=== PATIENT | female | born 1975 ===

== ENCOUNTER 2017-09-18 00:30 | Observation (INO) | payer MEDICAID, OTHER ==
[2017-09-18 00:31] VITALS: BMI 24.2
--- NOTE | 2017-09-18 00:42 | ED PDOC ---
Arrival/HPI - General Time Seen by Provider: 09/18/17 00:30 Historian: Patient, Family, EMS - History of Present Illness Narrative History of Present Illness (Text): 09/18/17 00:40 Rosette Linder is a 42 year old female, whose past medical history includes seizure disorder and hypertension, who presents to the emergency department brought in by EMS accompanied by relative status post 2 witnessed seizure episodes prior to arrival. EMS note patient was post-ictal en route, but patient is now alert and oriented x3. Patient states she is compliant with her seizure medication and notes her last seizure was approximately 1.5 years ago. Patient notes she has not been feeling well for the past few days. Patient denies any fevers, chills, chest pain, shortness of breath, abdominal pain, nausea, vomiting, urinary symptoms, headache, or any other complaint. Symptom Onset: Gradual Symptom Course: Unchanged Activities at Onset: Light Context: Home Past Medical History - Provider Review Nursing Documentation Reviewed: Yes Family/Social History - Physician Review Nursing Documentation Reviewed: Yes Family/Social History: Unknown Family HX Allergies/Home Meds Allergies/Adverse Reactions: Allergies No Known Allergies Allergy (Verified 09/18/17 00:31) Home Medications: Home Meds Medication Instructions Recorded Confirmed Unobtainable 09/18/17 09/18/17 Review of Systems - Physician Review All systems were reviewed & negative as marked: Yes - Review of Systems Constitutional: Other (+generalized malaise). absent: Fevers Eyes: Normal ENT: Normal Respiratory: Normal. absent: SOB, Cough Cardiovascular: Normal. absent: Chest Pain Gastrointestinal: Normal. absent: Abdominal Pain, Diarrhea, Nausea, Vomiting Genitourinary Female: Normal. absent: Dysuria, Frequency, Hematuria, Urine Output Changes Musculoskeletal: Normal. absent: Back Pain, Neck Pain Skin: Normal. absent: Rash Neurological: Seizure. absent: Headache, Dizziness Endocrine: Normal Hemo/Lymphatic: Normal Psychiatric: Normal Physical Exam Vital Signs Reviewed: Yes Vital Signs Temp Pulse Resp BP Pulse Ox 09/18/17 03:45 80 20 134/90 99 09/18/17 02:40 84 21 138/95 H 99 09/18/17 00:55 98.6 F 100 H 26 H 146/84 95 Temperature: Afebrile Blood Pressure: Normal Pulse: Regular Respiratory Rate: Normal Appearance: Positive for: Well-Appearing, Non-Toxic, Comfortable Pain Distress: None Mental Status: Positive for: Alert and Oriented X 3 - Systems Exam Head: Present: Atraumatic, Normocephalic Pupils: Present: PERRL Extroacular Muscles: Present: EOMI Conjunctiva: Present: Normal Ears: Present: Normal, NORMAL TM, Normal Canal Mouth: Present: Moist Mucous Membranes Pharnyx: Present: Normal. No: ERYTHEMA, EXUDATE, TONSILS ENLARGED, Peritonsilar Swelling, Uvular Deviation, Muffled/Hoarse Voice, Soft Palate/ Uvular Edema Nose (External): Present: Atraumatic Nose (Internal): Present: Normal Inspection Neck: Present: Normal Range of Motion. No: Meningeal Signs, MIDLINE TENDERNESS , Paraspinal Tenderness Respiratory/Chest: Present: Clear to Auscultation, Good Air Exchange. No: Respiratory Distress, Accessory Muscle Use Cardiovascular: Present: Regular Rate and Rhythm, Normal S1, S2. No: Murmurs Abdomen: No: Tenderness, Distention, Peritoneal Signs Back: Present: Normal Inspection Upper Extremity: Present: Normal Inspection. No: Cyanosis, Edema Lower Extremity: Present: Normal Inspection. No: Edema Neurological: Present: GCS=15, CN II-XII Intact, Speech Normal, Motor Func Grossly Intact, Normal Sensory Function, Normal Cerebellar Funct Skin: Present: Warm, Dry, Normal Color. 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 Differential Diagnosis included but are not limited to: Plan: -- CT Head w/o contrast -- EKG -- CXR -- Labs, cardiac enzymes -- Reassess and disposition Progress Notes: 09/18/17 00:55 Reviewed EKG, sinus tachycardia at 103 bpm. Incomplete RBBB. Non-specific ST/T wave changes. 09/18/17 02:26 Reviewed radiology, CXR shows no acute processes. CT Head: Limitations: Overlying bowel gas. Liver: Suboptimally visualized. Lobulated contour. Fatty infiltration. 3.3 x 3.0 x 3.9 cm hypo-to isoechoic mass. Additional masses not demonstrated likely due to suboptimal visualization. No intrahepatic ductal dilation. Gallbladder: No gallstones. No wall thickening. No pericholecystic fluid. No sonographic Maharaj's sign. Common bile duct: No dilatation. No stones. Pancreas: Obscured by overlying bowel gas. Kidneys: Normal echogenicity. No hydronephrosis. Spleen: No splenomegaly. Aorta: Not visualized. Inferior vena cava: Not visualized. Free fluid: No significant free fluid. Other findings: TIPS. IMPRESSION: 1. Liver mass, indeterminate but present on previous CT examination. Clinical correlation is needed. 2. Cirrhosis. 3. Incidental/non-acute findings are described above. 09/18/17 02:36 Case discussed with medical health researcher director of occupational health and Dr. Palma, who are aware and agree with plan. Pt will go to Telemetry observation for seizures under the hospitalist service. - Lab Interpretations Lab Results: 09/18/17 01:10 09/18/17 01:37 Lab Results 09/18/17 01:37: Sodium 142, Potassium 3.8, Chloride 106, Carbon Dioxide 25, Anion Gap 14, BUN 14, Creatinine 0.8, Est GFR ( Amer) > 60, Est GFR (Non- Af Amer) > 60, Random Glucose 107, Calcium 8.6, Total Bilirubin < 0.1 L, AST 25 , ALT 30, Alkaline Phosphatase 106, Lactate Dehydrogenase 491, Total Creatine Kinase 126, Troponin I 0.04, Total Protein 7.1, Albumin 3.9, Globulin 3.3, Albumin/Globulin Ratio 1.2 09/18/17 01:10: WBC 5.6, RBC 4.03, Hgb 11.3 L, Hct 33.3 L, MCV 82.6, MCH 28.0, MCHC 33.9, RDW 13.3, Plt Count 172, MPV 12.5 H 09/18/17 01:10: PT 11.8, INR 1.03, APTT 27.3 I have reviewed the lab results: Yes - RAD Interpretation Radiology Orders: 09/18/17 00:43 CHEST PORTABLE [RAD] Stat 09/18/17 00:44 HEAD W/O CONTRAST [CT] Stat Tanning Solution Maker: ED Physician, Radiologist - EKG Interpretation Interpreted by ED Physician: Yes Type: 12 lead EKG - Medication Orders Current Medication Orders: Hydrochlorothiazide (Hydrodiuril) 25 mg PO DAILY TONY Lamotrigine (Lamictal) 250 mg PO DAILY TONY PRN Reason: Protocol Lamotrigine (Lamictal) 100 mg PO HS TONY PRN Reason: Protocol Lorazepam (Ativan) 2 mg IVP Q6H PRN; Protocol PRN Reason: Seizure activity Losartan Potassium (Cozaar) 100 mg PO DAILY TONY Ondansetron HCl (Zofran Inj) 4 mg IVP Q4H PRN PRN Reason: Nausea/Vomiting Pantoprazole Sodium (Protonix Ec Tab) 40 mg PO 0600 TONY Discontinued Medications Ondansetron HCl (Zofran Inj) 4 mg IVP ONCE ONE Stop: 09/18/17 02:31 Last Admin: 09/18/17 02:49 Dose: 4 mg IVP Administration Document 09/18/17 02:49 HILLARY (Rec: 09/18/17 02:50 HILLARY [id number]) Charges for Administration # of IVP Administrations 1 - Scribe Statement The provider has reviewed the documentation as recorded by the Jonnyibkodi Trinidad Provider Scribe Attestation: All medical record entries made by the Scribe were at my direction and personally dictated by me. I have reviewed the chart and agree that the record accurately reflects my personal performance of the history, physical exam, medical decision making, and the department course for this patient. I have also personally directed, reviewed, and agree with the discharge instructions and disposition. Disposition/Present on Arrival - Present on Arrival Any Indicators Present on Arrival: No History of DVT/PE: No History of Uncontrolled Diabetes: No Urinary Catheter: No History of Decub. Ulcer: No History Surgical Site Infection Following: None - Disposition Have Diagnosis and Disposition been Completed?: Yes Diagnosis: Recurrent seizures Disposition: HOSPITALIZED Disposition Time: 02:41 Patient Problems: Current Active Problems Problem Status Onset Recurrent seizures Acute Condition: STABLE
[2017-09-18 01:30] LABS: INR 1.03 (0.93-1.08); PARTIAL THROMBOPLASTIN TIME 27.3 Seconds (25.1-36.5); PROTHROMBIN TIME 11.8 SECONDS (9.4-12.5)
[2017-09-18 01:38] LABS: HEMOGLOBIN 11.3 g/dL (12.0-16.0); MEAN CELL VOLUME 82.6 fl (80.0-105.0); MEAN CORPUSCULAR HGB CONC 33.9 g/dl (31.0-37.0); MEAN PLATELET VOLUME 12.5 fl (7.0-11.0); RBC 4.03 10^6/uL (3.5-6.1); RED CELL DISTRIBUTION WIDTH 13.3 % (11.5-14.5); WHITE BLOOD COUNT 5.6 10^3/ul (4.5-11.0)
[2017-09-18 02:20] LABS: ALB/GLOB RATIO 1.2 (1.1-1.8); ALBUMIN 3.9 g/dL (3.0-4.8); ALT/SGPT 30 U/L (7-56); AST/SGOT 25 U/L (14-36); BLOOD UREA NITROGEN 14 mg/dL (7-21); CALCIUM 8.6 mg/dL (8.4-10.5); GFR AFRICAN-AMERICAN > 60; GFR NON-AFRICAN AMERICAN > 60
--- NOTE | 2017-09-18 02:22 | CT ---
EXAM: CT Head Without Intravenous Contrast CLINICAL HISTORY: 42 years old, female; Signs and symptoms; Dizziness; Additional info: Seizures TECHNIQUE: Axial computed tomography images of the head/brain without intravenous contrast. All CT scans at this facility use one or more dose reduction techniques, viz.: automated exposure control; ma/kV adjustment per patient size (including targeted exams where dose is matched to indication; i.e. head); or iterative reconstruction technique. Coronal and sagittal reformatted images were created and reviewed. COMPARISON: No relevant prior studies available. FINDINGS: Brain: Minimal atrophy. No intracranial hemorrhage. No mass. No definite edema. Ventricles: No hydrocephalus. Bones/joints: No acute fracture. Soft tissues: Unremarkable. Sinuses: No acute sinusitis. Mastoid air cells: No mastoid effusion. Orbits: Unremarkable as visualized. IMPRESSION: 1. No definite acute intracranial abnormality. 2. Incidental/non-acute findings are described above.
[2017-09-18 02:31] LABS: TROPONIN I 0.04 ng/mL
--- NOTE | 2017-09-18 05:47 | CP.PCM.HP ---
<Chacorta Gunter - Last Filed: 09/18/17 06:01> History of Present Illness - History of Present Illness History of Present Illness: Mrs. Linder is a 42 year old female with a past medical history significant for seizure disorder, SLE, and HTN who presents after she had a witnessed seizure earlier today. Patient was accompanied by her sister who witnessed these seizures. She reports that the patient woke up from her sleep and her entire body began to convulse for approximately one minute. She then stopped completely for one minute and then her entire body began to convulse again for one minute before she stopped convulsing. She then called 911 and patient was brought to the ER. The patient reports that she does not remember this and awoke in the ambulance as her first recollection. She does note that she was dizzy and confused afterwards for several hours. She reports that she takes her seizure medications as prescribed and follows up with Dr. Montgomery, Neurology, on a regular basis. Her last reported seizure was 10 months ago on the same dose of this medication. Of note, patient reports that she had UTI symptoms in April, was prescribed an antibiotic and never got this or followed up on it. She also noted a clear malodorous vaginal discharge for the past three days. She denies any fevers, chills, headache, changes in her vision, sore throat, chest pain, SOB, cough, wheezing, abdominal pain, N/V/D/C, changes in urine output, skin lesions, or any numbness/tingling/weakness of any extremity. PMH: As stated above PSH: Denies Family History: Denies any history of seizures or neurological conditions Social History: Denies any tobacco, alcohol or illicit drug use; Live in [place] Allergies: NKDA Home Medications: As per MAR Present on Admission - Present on Admission Any Indicators Present on Admission: No Review of Systems - Review of Systems Review of Systems: As stated in HPI, otherwise negative Past Patient History - Infectious Disease Hx of Infectious Diseases: None - Past Social History Smoking Status: Never Smoked - CARDIAC Hx Hypertension: Yes - PULMONARY Hx Respiratory Disorders: No - NEUROLOGICAL Hx Dizziness: Yes Hx Transient Ischemic Attacks (TIA): Yes - HEENT Hx HEENT Problems: No - RENAL Hx Chronic Kidney Disease: No - ENDOCRINE/METABOLIC Hx Systemic Lupus Erythematosus: Yes - HEMATOLOGICAL/ONCOLOGICAL Hx Blood Disorders: No - INTEGUMENTARY Hx Dermatological Problems: Yes (Malar Rash due to Lupus) - MUSCULOSKELETAL/RHEUMATOLOGICAL Hx Falls: Yes - GASTROINTESTINAL Hx Gastrointestinal Disorders: Yes (Hemmorhoids) - GENITOURINARY/GYNECOLOGICAL Hx Genitourinary Disorders: No - PSYCHIATRIC Hx Anxiety: Yes Hx Panic Symptoms: Yes Hx Substance Use: No - SURGICAL HISTORY Hx Surgeries: Yes () Meds Allergies/Adverse Reactions: Allergies Allergy/AdvReac Type Severity Reaction Status Date / Time No Known Allergies Allergy Verified 09/18/17 00:31 Physical Exam - Constitutional Appears: Non-toxic, No Acute Distress - Head Exam Head Exam: ATRAUMATIC, NORMOCEPHALIC - Eye Exam Eye Exam: EOMI, Normal appearance, PERRL. absent: Conjunctival injection, Nystagmus, Periorbital swelling, Periorbital tenderness, Scleral icterus Pupil Exam: NORMAL ACCOMODATION, PERRL. absent: Fixed, Irregular, Miosis, Mydriatic, Unequal - ENT Exam ENT Exam: Mucous Membranes Moist, Normal Exam, Normal External Ear Exam, Normal Oropharynx. absent: Mucous Membranes Dry - Neck Exam Neck exam: Positive for: Full Rom, Normal Inspection. Negative for: Lymphadenopathy, Meningismus, Tenderness, Thyromegaly - Respiratory Exam Respiratory Exam: Clear to Auscultation Bilateral, NORMAL BREATHING PATTERN. absent: Accessory Muscle Use, Chest Wall Tenderness, Decreased Breath Sounds, Prolonged Expiratory Phase, Rales, Rhonchi, Wheezes, Respiratory Distress, Stridor - Cardiovascular Exam Cardiovascular Exam: REGULAR RHYTHM, RRR, +S1, +S2. absent: Bradycardia, Tachycardia, Clicks, Diastolic murmur, Gallop, Irregular Rhythm, JVD, Rubs, +S4 , Systolic Murmur - GI/Abdominal Exam GI & Abdominal Exam: Normal Bowel Sounds, Soft. absent: Bruit, Diminished Bowel Sounds, Distended, Firm, Guarding, Hernia, Hyperactive Bowel Sounds, Hypoactive Bowel Sounds, Mass, Organomegaly, Pulsatile Mass, Rebound, Rigid, Tenderness - Extremities Exam Extremities exam: Positive for: full ROM, normal capillary refill, normal inspection, pedal pulses present. Negative for: calf tenderness, joint swelling , pedal edema, tenderness - Back Exam Back exam: CVA tenderness (L) - Neurological Exam Neurological exam: Alert, CN II-XII Intact, Oriented x3 - Psychiatric Exam Psychiatric exam: Normal Affect, Normal Mood - Skin Skin Exam: Dry, Intact, Normal Color, Warm Results - Vital Signs Recent Vital Signs: Last Vital Signs Temp 98.0 F 09/18/17 05:06 Pulse 74 09/18/17 05:06 Resp 18 09/18/17 05:06 BP 133/76 09/18/17 05:06 Pulse Ox 99 09/18/17 04:06 - Labs Result Diagrams: 09/18/17 01:10 09/18/17 01:37 Assessment & Plan - Assessment and Plan (Free Text) Assessment: 42 year old female with a past medical history significant for seizure disorder , SLE, and HTN who presents after she had a witnessed seizure earlier today. Plan: 1. Seizure -CT Head negative for any acute processes -Continue home Lamictal -Ativan PRN for seizures -Aspiration, Seizure and Fall precautions -Neurology consulted, all recommendations appreciated 2. Vaginal Discharge -BV, T. Vaginalis and G/C serologies sent 3. History of HTN -Continue home Losartan and HCTZ GI Prophylaxis: Protonix DVT Prophylaxis: SCD Diet: Heart Healthy Patient seen and case discussed with attending, Dr. Palma. - Date & Time Date: 09/18/17 Time: 06:13 <Minerva PRICE,[facility] - Last Filed: 09/18/17 09:45> Results - Vital Signs Recent Vital Signs: Last Vital Signs Temp 99.1 F 09/18/17 06:00 Pulse 83 09/18/17 06:00 Resp 19 09/18/17 06:00 BP 139/96 H 09/18/17 06:00 Pulse Ox 97 09/18/17 06:00 - Labs Result Diagrams: 09/18/17 01:10 09/18/17 01:37 Attending/Attestation - Attestation I have personally seen and examined this patient.: Yes I have fully participated in the care of the patient.: Yes I have reviewed all pertinent clinical information: Yes Notes (Text): -I agree with the above H&P completed by the resident physician with the following additions and/or changes: -The patient is a 42 year old woman with a history of seizure disorder, SLE and HTN, who is being admitted for witnessed seizure. Overnight, her home anti- epileptic regimen will be resumed plus PRN IV Ativan. Neurology has been consulted. Seizure precautions, fall precautions, HOB>30 and IVFs will be ordered. Home BP meds resumed. For the patients incidental complaint of recurrent UTIs and vaginal discharge, a UA as well as other common infectious urine serologies have been ordered (i.e.-chlamydia etc.).
[2017-09-18] MEDS ORDERED: Pantoprazole 40 mg EC Tab PO SCH (06:00)
--- NOTE | 2017-09-18 09:24 | RAD ---
HISTORY: seizure COMPARISON: No prior. FINDINGS: LUNGS: No active pulmonary disease. PLEURA: No significant pleural effusion identified, no pneumothorax apparent. CARDIOVASCULAR: Normal. OSSEOUS STRUCTURES: No significant abnormalities. VISUALIZED UPPER ABDOMEN: Normal. OTHER FINDINGS: None. IMPRESSION: No active disease.
[2017-09-18 12:00] VITALS: O2SAT 95
[2017-09-18] MEDS ORDERED: levETIRAcetam 1,000 MG in Sodium Chloride 0.9% 100 ML IV ONE (13:08)
[2017-09-18 13:42] VITALS: BP 132/88; PULSE 75; RESP 21; TEMP 98.1
--- NOTE | 2017-09-18 15:09 | CP.PCM.DIS ---
<Tamela Ro - Last Filed: 09/18/17 21:10> Provider - Provider Date of Admission: 09/18/17 02:37 Attending physician: Alfonzo Low MD Primary care physician: NO PRIMARY CARE PROVIDER Time Spent in preparation of Discharge (in minutes): 45 Hospital Course - Lab Results Lab Results: Most Recent Lab Values WBC 5.6 10^3/ul (4.5-11.0) 09/18/17 01:10 RBC 4.03 10^6/uL (3.5-6.1) 09/18/17 01:10 Hgb 11.3 g/dL (12.0-16.0) L 09/18/17 01:10 Hct 33.3 % (36.0-48.0) L 09/18/17 01:10 MCV 82.6 fl (80.0-105.0) 09/18/17 01:10 MCH 28.0 pg (25.0-35.0) 09/18/17 01:10 MCHC 33.9 g/dl (31.0-37.0) 09/18/17 01:10 RDW 13.3 % (11.5-14.5) 09/18/17 01:10 Plt Count 172 10^3/uL (120.0-450.0) 09/18/17 01:10 MPV 12.5 fl (7.0-11.0) H 09/18/17 01:10 PT 11.8 SECONDS (9.4-12.5) 09/18/17 01:10 INR 1.03 (0.93-1.08) 09/18/17 01:10 APTT 27.3 Seconds (25.1-36.5) 09/18/17 01:10 Sodium 142 mmol/L (132-148) 09/18/17 01:37 Potassium 3.8 mmol/L (3.6-5.0) 09/18/17 01:37 Chloride 106 mmol/L (98-107) 09/18/17 01:37 Carbon Dioxide 25 mmol/L (21-33) 09/18/17 01:37 Anion Gap 14 (10-20) 09/18/17 01:37 BUN 14 mg/dL (7-21) 09/18/17 01:37 Creatinine 0.8 mg/dl (0.7-1.2) 09/18/17 01:37 Est GFR ( Amer) > 60 09/18/17 01:37 Est GFR (Non-Af Amer) > 60 09/18/17 01:37 Random Glucose 107 mg/dL (70-110) 09/18/17 01:37 Calcium 8.6 mg/dL (8.4-10.5) 09/18/17 01:37 Total Bilirubin < 0.1 mg/dL (0.2-1.3) L 09/18/17 01:37 AST 25 U/L (14-36) 09/18/17 01:37 ALT 30 U/L (7-56) 09/18/17 01:37 Alkaline Phosphatase 106 U/L (38-126) 09/18/17 01:37 Lactate Dehydrogenase 491 U/L (333-699) 09/18/17 01:37 Total Creatine Kinase 126 U/L (35-230) 09/18/17 01:37 Troponin I 0.04 ng/mL 09/18/17 01:37 Total Protein 7.1 g/dL (5.8-8.3) 09/18/17 01:37 Albumin 3.9 g/dL (3.0-4.8) 09/18/17 01:37 Globulin 3.3 gm/dL 09/18/17 01:37 Albumin/Globulin Ratio 1.2 (1.1-1.8) 09/18/17 01:37 - Hospital Course Hospital Course: 42 year old female with a past medical history significant for seizure disorder , SLE, and HTN who presents after she had a witnessed seizure earlier today. Seizure was wittnessed by her sister, who reports that the patient's entire body began to convulse for approximately less then one minute. She then stopped completely for one minute and then her entire body began to convulse again for one minute before she stopped convulsing. patient reports that she does not remember this and awoke in the ambulance as her first recollection. She does note that she was dizzy and confused afterwards for several hours. Patient states that she started new job 1 week ago and has been stressed and not sleeping well. She reports that she takes her seizure medications as prescribed and follows up with Dr. Montgomery, Neurology, on a regular basis. Her last reported seizure was 10 months ago on the same dose of this medication. CT Head negative for any acute processes Neurology was consulted, recommended an additional medication for breakthrough seizure and follow up with neurologist. patient reports vaginal itching, and clear malodorous vaginal discharge for the past three days. She was given 1 dose of diflucan. Blood pressure was monitored. Patient was discharged with 500 keppra BID and instructed to continue taking home dose of lamictal. Patient is instructed to follow up with neurologist. Patient and sister at bedside are aware of hospital coarse and discharge instructions, they are in agreement. Discharge Exam - Head Exam Head Exam: ATRAUMATIC, NORMOCEPHALIC - Eye Exam Eye Exam: EOMI, Normal appearance Pupil Exam: NORMAL ACCOMODATION, PERRL - ENT Exam ENT Exam: Mucous Membranes Moist - Respiratory Exam Respiratory Exam: Clear to PA & Lateral, NORMAL BREATHING PATTERN, UNREMARKABLE. absent: Accessory Muscle Use, Chest Wall Tenderness, Decreased Breath Sounds, Rales, Rhonchi, Wheezes, Respiratory Distress - Cardiovascular Exam Cardiovascular Exam: REGULAR RHYTHM, +S1, +S2. absent: Bradycardia, Tachycardia , Systolic Murmur - GI/Abdominal Exam GI & Abdominal Exam: Normal Bowel Sounds, Soft, Unremarkable. absent: Distended , Firm, Guarding, Tenderness - Neurological Exam Neurological exam: Alert, CN II-XII Intact, Normal Gait, Oriented x3 - Skin Skin Exam: Dry, Intact, Normal Color, Warm Discharge Plan - Discharge Medications Prescriptions: Levetiracetam [Keppra] 500 mg PO BID #30 tablet - Follow Up Plan Condition: STABLE Disposition: HOME/ ROUTINE Instructions: Seizures, Adult (DC) Additional Instructions: Take Keppra 500 mg twice a day. Start tomorrow. Follow up with your neurologist in 1 week. Referrals: PCP,NO [Primary Care Provider] - Jeremiah Gibbs MD [Staff Provider] - <Brian Gaona - Last Filed: 09/20/17 15:53> Provider - Provider Date of Admission: 09/18/17 02:37 Attending physician: Alfonzo Low MD Primary care physician: NO PRIMARY CARE PROVIDER Hospital Course - Lab Results Lab Results: Micro Results 09/18/17 13:59 Other: Please Indicate Trichomonas Culture - Final Most Recent Lab Values WBC 5.6 10^3/ul (4.5-11.0) 09/18/17 01:10 RBC 4.03 10^6/uL (3.5-6.1) 09/18/17 01:10 Hgb 11.3 g/dL (12.0-16.0) L 09/18/17 01:10 Hct 33.3 % (36.0-48.0) L 09/18/17 01:10 MCV 82.6 fl (80.0-105.0) 09/18/17 01:10 MCH 28.0 pg (25.0-35.0) 09/18/17 01:10 MCHC 33.9 g/dl (31.0-37.0) 09/18/17 01:10 RDW 13.3 % (11.5-14.5) 09/18/17 01:10 Plt Count 172 10^3/uL (120.0-450.0) 09/18/17 01:10 MPV 12.5 fl (7.0-11.0) H 09/18/17 01:10 PT 11.8 SECONDS (9.4-12.5) 09/18/17 01:10 INR 1.03 (0.93-1.08) 09/18/17 01:10 APTT 27.3 Seconds (25.1-36.5) 09/18/17 01:10 Sodium 142 mmol/L (132-148) 09/18/17 01:37 Potassium 3.8 mmol/L (3.6-5.0) 09/18/17 01:37 Chloride 106 mmol/L (98-107) 09/18/17 01:37 Carbon Dioxide 25 mmol/L (21-33) 09/18/17 01:37 Anion Gap 14 (10-20) 09/18/17 01:37 BUN 14 mg/dL (7-21) 09/18/17 01:37 Creatinine 0.8 mg/dl (0.7-1.2) 09/18/17 01:37 Est GFR ( Amer) > 60 09/18/17 01:37 Est GFR (Non-Af Amer) > 60 09/18/17 01:37 Random Glucose 107 mg/dL (70-110) 09/18/17 01:37 Calcium 8.6 mg/dL (8.4-10.5) 09/18/17 01:37 Total Bilirubin < 0.1 mg/dL (0.2-1.3) L 09/18/17 01:37 AST 25 U/L (14-36) 09/18/17 01:37 ALT 30 U/L (7-56) 09/18/17 01:37 Alkaline Phosphatase 106 U/L (38-126) 09/18/17 01:37 Lactate Dehydrogenase 491 U/L (333-699) 09/18/17 01:37 Total Creatine Kinase 126 U/L (35-230) 09/18/17 01:37 Troponin I 0.04 ng/mL 09/18/17 01:37 Total Protein 7.1 g/dL (5.8-8.3) 09/18/17 01:37 Albumin 3.9 g/dL (3.0-4.8) 09/18/17 01:37 Globulin 3.3 gm/dL 09/18/17 01:37 Albumin/Globulin Ratio 1.2 (1.1-1.8) 09/18/17 01:37 Attending/Attestation - Attestation I have personally seen and examined this patient.: Yes I have fully participated in the care of the patient.: Yes I have reviewed all pertinent clinical information, including history, physical exam and plan: Yes Notes (Text): 09/20/17 15:49 Medical record note made by the resident after discussion with my direction and input after the patient was personally seen and examined by me. I have reviewed the chart and agree that the record accurately reflects by personal performance of the history, physical exam, data review, and medical decision-making, in the course for the patient. I have also personally directed the plan of care. 42 year old female with a past medical history significant for seizure disorder and HTN who presents after she had a witnessed seizure, patient CT head was negative, she gave H/O sleep deprivation that could have triggered seizure, which has also contributed to the seizure in the past.She was started on Keppra in addition to her Lamotrigine as recommended by Neurology.She was education about good sleeping hygiene.She will be discharged home and will follow up with PCP and Neurology. Management plan was discussed in detail with patient. Education was provided. 09/20/17 15:53
--- NOTE | 2017-09-19 14:15 | CARD ---
APPROVED REPORT EKG Measurement Heart [id number] <Conclusion> Sinus tachycardia Possible Left atrial enlargement Borderline ECG
== END 2017-09-18 15:52 | disposition home or self-care (01) ==
LOC: ED 00:30 → ERH 02:37 → 2RSO 04:16
PROVIDERS: ADMIT Internal Medicine; ATTEND Internal Medicine
DX: G40.909 Epilepsy, unspecified, not intractable, without status epilepticus (principal); I10 Essential (primary) hypertension; K74.60 Unspecified cirrhosis of liver; M32.9 Systemic lupus erythematosus, unspecified; N89.8 Other specified noninflammatory disorders of vagina; R42 Dizziness and giddiness
CPT/HCPCS: 70450; 71045; 80053; 82550; 83615; 84484; 85027; 85610; 85730; 87491; 87591; 93005; 96365; 96375; 96376; 99285; G0378; J1953; J2405